=== PATIENT | male | born 1975 | race Two or more races ===

== ENCOUNTER 2023-02-17 17:40 | Emergency (ER) | payer SELFPAY ==
[~2023-02-17] VITALS: Ht 167.6 cm; Wt 101.1 kg
[2023-02-17] MEDS ORDERED: GLUCAGON EMERG KIT 1mg/1ml IV ONE (18:00)
[2023-02-17 21:00] VITALS: PULSE 69; RESP 16; O2SAT 97
[2023-02-17 21:11] VITALS: BP 123/81; PULSE 69; RESP 16; TEMP 98.3; O2SAT 97
[2023-02-17] MEDS ORDERED: MAALOX PLUS or MAALOX 30 ML PO ONE (21:15)
[2023-02-17] MEDS ORDERED: LIDOCAINE VISCOUS 2% 15ML UD PO ONE (21:15)
== END 2023-02-17 21:17 | disposition home or self-care (01) ==
LOC: ER 17:40
DX: T17.228A Food in pharynx causing other injury, initial encounter (principal); J02.9 Acute pharyngitis, unspecified; Y92.89 Other specified places as the place of occurrence of the external cause
CPT/HCPCS: 71046; 96374; 99283; J1610

== ENCOUNTER 2023-08-06 01:36 | Emergency (ER) | payer SELFPAY ==
[~2023-08-06] VITALS: Ht 167.6 cm; Wt 100.0 kg
[2023-08-06 01:42] VITALS: BP 124/73; PULSE 80; RESP 18; TEMP 96.9; O2SAT 97
[2023-08-06] MEDS ORDERED: HYDR-4902 PO (04:09)
[2023-08-06] MEDS ORDERED: CYCL-611 PO (04:09)
[2023-08-06] MEDS ORDERED: KETOROLAC TROMETH 60MG/2ML VIAL IM ONE (04:15)
[2023-08-06] MEDS ORDERED: DexAMETHasone SOD PHOS 10MG/1ML VIAL INJ IM ONE (04:15)
[2023-08-06] MEDS ORDERED: HYDROcodone-ACET 7.5/325MG TAB PO ONE (04:15)
== END 2023-08-06 05:03 | disposition home or self-care (01) ==
LOC: ER 01:36
DX: M41.86 Other forms of scoliosis, lumbar region (principal); M62.830 Muscle spasm of back
CPT/HCPCS: 72100; 96372; 99284; J1100; J1885